=== PATIENT | female | born 1990 | race African-American/Black ===

== ENCOUNTER 2016-08-31 01:13 | Inpatient (IN) | payer SELFPAY ==
[~2016-08-31] VITALS: Ht 172.7 cm; Wt 123.4 kg
[~2016-08-31 01:13] MED LIST: LISI-334 PO
[2016-08-31 01:48] LABS: BASO # 0.1 x10^3/uL (0.0-0.2); BASO % 1 % (0-3); EOS % 0 % (0-3); HEMATOCRIT 41.3 % (36.0-47.0); HEMOGLOBIN 13.5 g/dL (12.0-15.5); LYMPH # 2.9 x10^3/uL (1.0-4.8); LYMPH % 31 % (24-48); MEAN CORPUSCULAR HEMOGLOBIN 26 pg (25-35); MEAN CORPUSCULAR HGB CONC 33 g/dL (31-37); MEAN CORPUSCULAR VOLUME 81 fL (79-100); MONO % 5 % (0-9); NEUT % 63 % (31-73); PLATELET COUNT 209 x10^3/uL (140-400); RED BLOOD COUNT 5.12 x10^6/uL (3.50-5.40); RED CELL DISTRIBUTION WIDTH 12.8 % (11.5-14.5); WHITE BLOOD COUNT 9.4 x10^3/uL (4.0-11.0)
[2016-08-31 01:57] LABS: CALCIUM 9.3 mg/dL (8.5-10.1); CREATININE 0.8 mg/dL (0.6-1.0); GFR 103.3; POTASSIUM 3.4 mmol/L (3.5-5.1)
[2016-08-31] MEDS: FENTANYL PF 100 MCG/2 ML VIAL. IV PRN ×3 (02:12→08:00)
--- NOTE | 2016-08-31 02:14 | EKG ---
[facility] [address] [place] [address] Test Date: 2016-08-31 Test Time: 01:19:53 Pat Name: BALTA STEARNS Department: Room: Gender: F [employer]: : 1990 Requested By: REMY RUSSELL Order Number: [id number] Reading MD: Measurements Intervals [place] Rate: 94 P: 47 [place]: 194 QRS: 0 QRSD: 84 T: 59 QT: 350 QTc: 443 Interpretive Statements SINUS RHYTHM LEFTWARD AXIS QRS(T) CONTOUR ABNORMALITY CONSISTENT WITH ANTEROSEPTAL INFARCT PROBABLY OLD ABNORMAL ECG RI6.01 No previous ECG available for comparison
[2016-08-31] MEDS: NITROGLYCERIN SUBLINGUAL 0.4 MG BOTTLE OF 25. SL PRN ×2 (02:15→02:24)
[2016-08-31 03:09] LABS: BILIRUBIN,URINE NEGATIVE (NEG); GLUCOSE,URINE >=1000 mg/dL (NEG); NITRITE,URINE NEGATIVE (NEG); PH,URINE 5.5; PROTEIN,URINE 100 mg/dL (NEG-TRACE)
[2016-08-31 03:15] LABS: BACTERIA,URINE 0 /HPF (0-FEW); BARBITURATES NEG (NEG); BENZODIAZEPINES NEG (NEG); CANNABINOIDS POS (NEG); COCAINE NEG (NEG); METHADONE NEG (NEG); OPIATES NEG (NEG); PHENCYCLIDINE NEG (NEG); SQUAMOUS EPITHELIAL CELL,UR FEW /LPF
[2016-08-31 03:17] LABS: ETHANOL, URINE NEG (NEG)
--- NOTE | 2016-08-31 03:17 | ED.ADGEN ---
Past Medical History Past Medical History: CAD, Diabetes-Type I, GERD, Hypertension, Stroke Past Surgical History: No Surgical History Alcohol Use: None Drug Use: None Adult General Chief Complaint Chief Complaint: CHEST PAIN HPI HPI Patient is a 26 year old woman, history of hypertension, type 2 diabetes mellitus, CAD, his last catheter was performed 2 years ago, who presents to the emergency department with complaint of left chest pain, radiating into the left arm, associated with lightheadedness, numbness and tingling in the left arm, shortness of breath, that began while the patient was walking briskly to her friend's house. Patient states that this occurred about 10 minutes before she called the ambulance, as in present for about 20 minutes at this time, improved somewhat when she sat down to rest, but she states it is still present at this time. Denies any injuries, denies any fevers, chills, cough, nausea, vomiting, weakness. She states that she was told previously to call EMS if she developed pain such as this. Family history is positive for Review of Systems Review of Systems Constitutional: Denies fever or chills. [] Eyes: Denies change in visual acuity. [] HENT: Denies nasal congestion or sore throat. [] Respiratory: Denies cough or shortness of breath. [] Cardiovascular: Denies chest pain or edema. [] GI: Denies abdominal pain, nausea, vomiting, bloody stools or diarrhea. [] : Denies dysuria. [] Musculoskeletal: Denies back pain or joint pain. [] Integument: Denies rash. [] Neurologic: Denies headache, focal weakness or sensory changes. [] Endocrine: Denies polyuria or polydipsia. [] Lymphatic: Denies swollen glands. [] Psychiatric: Denies depression or anxiety. [] Current Medications Current Medications Current Medications Medications (Trade) Dose Ordered Sig/Seven Start Time Stop Time Status Last Admin Dose Admin Fentanyl Citrate (Fentanyl 2ml Vial) 25 mcg PRN Q15MIN PRN 08/31/16 01:45 09/01/16 01:44 08/31/16 03:30 25 MCG Multi-Ingredient Mouthwash/Gargle (Gi Cocktail Single Dose) 15 ml 1X ONCE 08/31/16 03:45 08/31/16 03:46 DC 08/31/16 03:30 15 ML Nitroglycerin (Nitrostat) 0.4 mg PRN Q5MIN PRN 08/31/16 01:45 09/01/16 01:44 08/31/16 02:24 0.4 MG Allergies Allergies Allergies Coded Allergies Type Severity Reaction Last Updated Verified No Known Drug Allergies 11/27/14 No Physical Exam Physical Exam Constitutional: Well developed, well nourished, no acute distress, non-toxic appearance. [] HENT: Normocephalic, atraumatic, bilateral external ears normal, oropharynx moist, no oral exudates, nose normal. [] Eyes: PERRLA, EOMI, conjunctiva normal, no discharge. [] Neck: Normal range of motion, no tenderness, supple, no stridor. [] Cardiovascular:Heart rate regular rhythm, no murmur [] Lungs & Thorax: Bilateral breath sounds clear to auscultation [] Abdomen: Bowel sounds normal, soft, no tenderness, no masses, no pulsatile masses. [] Skin: Warm, dry, no erythema, no rash. [] Back: No tenderness, no CVA tenderness. [] Extremities: No tenderness, no cyanosis, no clubbing, ROM intact, no edema. [] Neurologic: Alert and oriented X 3, normal motor function, normal sensory function, no focal deficits noted. [] Psychologic: Affect normal, judgement normal, mood normal. [] Current Patient Data Vital Signs Vital Signs Date Time Temp Pulse Resp B/P Pulse Ox O2 Delivery O2 Flow Rate FiO2 08/31/16 03:45 80 22 146/86 97 Room Air 08/31/16 01:15 97.5 97.5 Lab Values Laboratory Tests Test 08/31/16 01:40 08/31/16 02:45 08/31/16 02:55 White Blood Count 9.4x10^3/uL (4.0-11.0) Red Blood Count 5.12x10^6/uL (3.50-5.40) Hemoglobin 13.5g/dL (12.0-15.5) Hematocrit 41.3% (36.0-47.0) Mean Corpuscular Volume 81fL (79-100) Mean Corpuscular Hemoglobin 26pg (25-35) Mean Corpuscular Hemoglobin Concent 33g/dL (31-37) Red Cell Distribution Width 12.8% (11.5-14.5) Platelet Count 209x10^3/uL (140-400) Neutrophils (%) (Auto) 63% (31-73) Lymphocytes (%) (Auto) 31% (24-48) Monocytes (%) (Auto) 5% (0-9) Eosinophils (%) (Auto) 0% (0-3) Basophils (%) (Auto) 1% (0-3) Neutrophils # (Auto) 5.9x10^3uL (1.8-7.7) Lymphocytes # (Auto) 2.9x10^3/uL (1.0-4.8) Monocytes # (Auto) 0.5x10^3/uL (0.0-1.1) Eosinophils # (Auto) 0.0x10^3/uL (0.0-0.7) Basophils # (Auto) 0.1x10^3/uL (0.0-0.2) D-Dimer (Priscila) 0.29ug/mlFEU (0.00-0.50) Sodium Level 144mmol/L (136-145) Potassium Level 3.4mmol/L (3.5-5.1) L Chloride Level 104mmol/L (98-107) Carbon Dioxide Level 28mmol/L (21-32) Anion Gap 12 (6-14) Blood Urea Nitrogen 21mg/dL (7-20) H Creatinine 0.8mg/dL (0.6-1.0) Estimated GFR (Cockcroft-Gault) 103.3 Glucose Level 374mg/dL (70-99) H Calcium Level 9.3mg/dL (8.5-10.1) Troponin I Quantitative < 0.017ng/mL (0.000-0.055) ZP-Orn-M-Type Natriuretic Peptide 33pg/mL (0-124) Lipase 101U/L (73-393) Urine Collection Type Unknown Urine Color Yellow Urine Clarity Clear Urine pH 5.5 Urine Specific [place] >=1.030 Urine Protein 100mg/dL (NEG-TRACE) Urine Glucose (UA) >=1000mg/dL (NEG) Urine Ketones (Stick) 15mg/dL (NEG) Urine Blood Moderate (NEG) Urine Nitrite Negative (NEG) Urine Bilirubin Negative (NEG) Urine Urobilinogen Dipstick 1.0mg/dL (0.2 mg/dL) Urine Leukocyte Esterase Negative (NEG) Urine RBC 6-10/HPF (0-2) Urine WBC 5-10/HPF (0-4) Urine Squamous Epithelial Cells Few/LPF Urine Bacteria 0/HPF (0-FEW) Urine Mucus Slight/LPF Urine Opiates Screen Neg (NEG) Urine Methadone Screen Neg (NEG) Urine Barbiturates Neg (NEG) Urine Phencyclidine Screen Neg (NEG) Urine Amphetamine/Methamphetamine Neg (NEG) Urine Benzodiazepines Screen Neg (NEG) Urine Cocaine Screen Neg (NEG) Urine Cannabinoids Screen Pos (NEG) Urine Ethyl Alcohol Neg (NEG) POC Urine HCG, Qualitative Hcg negative (Negative) Laboratory Tests 08/31/16 01:40 Laboratory Tests 08/31/16 01:40 EKG EKG EC: Sinus rhythm, left axis deviation, heart rate 94 beats minute, abnormalities noted in the anterior septal leads, QTc 443, NM 194, worse 84, abnormal ECG, does not meet STEMI criteria. As interpreted by me. [] Radiology/Procedures Radiology/Procedures [] Course & Med Decision Making Course & Med Decision Making Pertinent Labs and Imaging studies reviewed. (See chart for details) All the patient is only 18 years old, she has a history of known cardiac disease after a catheterization performed 2 years ago, per her report at , history of hypertension and diabetes mellitus, who presents with chest pain radiating to left arm, associated with shortness of breath and lightheadedness. Chest pain again showed arrival in the ED. She received nitroglycerin, has 30 taken aspirin she takes daily, and is given a full dose in the ED, along with fentanyl. Pain is improved with these interventions. ECG does not reveal any evidence of acute cardial infarction, initial troponin is negative, however due to the patient's family and personal history, and as it has been several years since she had a cardiac evaluation, will admit for cardiology consultation, patient accepted to the service of Dr. Mendez of internal medicine, as a full admission, bridge orders as requested. Dragon Disclaimer Dragon Disclaimer This electronic medical record was generated, in whole or in part, using a voice recognition dictation system. Departure Impression: Primary Impression: Chest pain Disposition: ADMITTED INPATIENT Condition: IMPROVED Problem Qualifiers Primary Impression: Chest pain Chest pain type: unspecified Qualified Code: R07.9 - Chest pain, unspecified REMY RUSSELL DO Aug 31, 2016 03:17
[2016-08-31] MEDS ORDERED: LIDO:MAALOX:DONNATAL 1:1:1 15 ML SINGLE DOSE SWSW ONE (03:45)
--- NOTE | 2016-08-31 08:13 | ACF ---
Admit Criteria Forms Admit Criteria Forms Admit Criteria Forms CHEST PAIN Clinical Indications for Admission to Inpatient Care (Place 'X' for any and all applicable criteria): Admission is indicated for chest pain and ANY ONE of the following(1)(2)(3)(4)(5 ): [ ]I. Angina with acute coronary syndrome (Also use Myocardial Infarction or Angina guideline) [X]II. Hemodynamic instability [ ]III. Angina needing acute intervention as indicated by ALL of the following( 11)(12): [ ]a) Unstable angina is present as indicated by angina that is ANY ONE of the following: [ ]i) New onset [ ]ii) Nocturnal [ ]iii) Prolonged at rest [ ]iv) Progressive [ ]b) Angina warrants acute intervention as indicated by ANY ONE of the following: [ ]i) Recurrent angina (e.g, not responding as previously to treatment) [ ]ii) Angina at rest or with low-level activities despite initial medical therapy [ ]iii) New or presumably new ST-segment depression on ECG [ ]iv) Signs or symptoms of heart failure (eg, dyspnea, pulmonary edema) [ ]v) New or worsening mitral regurgitation [ ]vi) Hemodynamic instability [ ]vii) Dangerous arrhythmia (eg, sustained ventricular tachycardia) [ ]viii) History of percutaneous coronary intervention within 6 months [ ]ix) History of coronary artery bypass graft surgery [ ]x) JACK risk score of 2 or greater[A] [ ]xi) History of Diabetes(14) [ ]xii) High-risk cardiac ischemia findings on noninvasive testing (e.g, echocardiogram, treadmill testing, nuclear scan) [ ]xiii) Chronic renal insufficiency (ie, estimated GFR less than 60 mL/min/1.732m) [ ]xiv) Left ventricular ejection fraction less than 40% [ ]IV. Evidence of MT (eg, cardiac biomarkers positive, ST-segment elevation on ECG) also use Myocardial Infarction Criteria Form. [ ]V. Pulmonary edema [ ]. Respiratory distress [ ]VII. Chest pain indicative of serious diagnosis other than coronary artery disease (eg, aortic dissection) [ ]VIII. Contraindications and/or Inappropriate clinical situations for Observational Care in patients with Chest Pain, when ANY ONE of the following is required: [ ]a) Patient with risk factor for pulmonary embolism, acute coronary syndrome and myocardial infarction (18) [ ]b) Patient with Pulmonary embolism require an average LOS of 4.3 days, therefore emergency department observation management is inappropriate 18,23 [ ]c) Painful condition/s in the elderly, have the highest rate of recidivism after emergency department observation management (10.8%) 20,21,22 [ ]d) Elevated cardiac biomarker requires intensive and exhaustive care (19) [ ]IX. General contraindications and/or Inappropriate clinical situations for Observational Care in patients with Chest Pain, when ANY ONE of the following is required: [ ]a) Prediction of prolongation of LOS based on ANY ONE of the following may be considered as a contraindication for observational care 2, 3, 4, 5, 6, 7, 8, 9, 10, 11 [ ]i) Age > 65 yrs. [ ]ii) Patient arriving by ambulance [ ]iii) Patient with high acuity [ ]iv) Patient requiring vital sign monitoring [ ]v) Patient on IV medication [ ]b) Systolic blood pressures 180mmHg 3,12 [ ]c) Patient with altered mental status including delirium and other alteration of consciousness, (3) [ ]d) Patient whose discharge disposition will be to a care home home or rehabilitation home should not be managed in Emergency Department Observation Unit. CMS rule requires 3 days hospital stay before such placement. 3,13 [ ]e) Patient with failure to thrive due to broad array of etiologies 3,16,17 [ ]f) Inability to ambulate 3,14 Extended stay beyond goal length of stay may be needed for (1)(28): [ ]a) Specific condition diagnosed after evaluation (eg, pulmonary embolism, aortic dissection) [ ]b) Unstable angina [ ]c) Continued suspicion of acute coronary syndrome with inability to complete needed cardiac evaluation (eg, patient clinically unable to undergo stress testing) [ ]d) Myocardial infarction (Contents from ANGINA and CHEST PAIN clinical indications for admission to inpatient care have been integrated in this form) The original [employer] content created by [employer] has been revised. The portions of the content which have been revised are identified through the use of italic text or in bold, and [facility] has neither reviewed nor approved the modified material. All other unmodified content is copyright [employer]. Please see references footnoted in the original [facility] center[facility] [employer] edition 2016 SAMEERA SUN Aug 31, 2016 08:13
[2016-08-31] MEDS ORDERED: METF10002 PO (10:52)
[2016-08-31] MEDS ORDERED: PANT40TA3 PO (10:52)
[2016-08-31] MEDS ORDERED: INSU100V8 SQ (10:52)
[2016-08-31] MEDS ORDERED: TRAZ50TA15 PO (10:52)
[2016-08-31] MEDS ORDERED: ESCI10TA10 PO (10:52)
[2016-08-31] MEDS ORDERED: AMLO10TA2 PO (10:52)
[2016-08-31] MEDS ORDERED: INSU100C4 SQ (10:52)
[2016-08-31 11:00] VITALS: BP 163/96
[2016-08-31] MEDS ORDERED: FENTANYL PF 100 MCG/2 ML VIAL. IV PRN (11:15)
[2016-08-31] MEDS ORDERED: DEXTROSE 50% 25 GM / 50ML DISP.SYRIN. IV PRN (11:15)
[2016-08-31] MEDS ORDERED: ZOLPIDEM 5 MG TABLET. PO PRN (11:15)
[2016-08-31] MEDS ORDERED: LABETALOL 20 MG/4 ML DISP.SYRIN. IVP PRN (11:15)
[2016-08-31 11:23] VITALS: BP 163/96
[2016-08-31 11:27] LABS: CHOLESTEROL/HDL RATIO 5.9
--- NOTE | 2016-08-31 12:09 | PDOC1 ---
History and Physical Date of Admission Date of Admission DATE: 08/31/16 TIME: 12:03 Identification/Chief Complaint Chief Complaint chest pain Source Source: Caregiver, Chart review, Patient History of Present Illness History of Present Illness 26 y/o heavy set AA female with DM on high doses insulin, HTN, and strong family hx CAD (mother at age 52 from CAD), admitted for CP,. HAs been going on quite a while, weeks to few mos, left sided, associated with dizziness and maybe lightheadedness, no diaphoresis, radiated to left afm, LAsts 10 mins, then goes back again, CE and EKG so far reassuring, BP may be on high side. NO PCP, [facility] compliance,. Pt admitted for r/o ACS, given strong risk factors. BS > 300 on admissio, pt does not know her hgba1c Past Medical History Cardiovascular: HTN CENTRAL NERVOUS SYSTEM: CVA Endocrine: Diabetes Past Surgical History Past Surgical History: No pertinent history Family History Family History: Coronary Artery Disease, Diabetes, Hypertension Social History Smoke: No ALCOHOL: occassional Drugs: None Current Problem List Problem List Problems Medical Problems: (1) Chest pain Status: Acute Problems: Current Medications Current Medications Current Medications Nitroglycerin (Nitrostat) 0.4 mg PRN Q5MIN PRN SL CP RATING > 1/10 Last administered on 08/31/16 02:24; Start 08/31/16 at 01:45; Stop 09/01/16 at 01:44 Fentanyl Citrate (Fentanyl 2ml Vial) 25 mcg PRN Q15MIN PRN IV PAIN GREATER THAN 3/10 Last administered on 08/31/16 08:00; Start 08/31/16 at 01:45; Stop at 11:05; Status DC Multi-Ingredient Mouthwash/Gargle (Gi Cocktail Single Dose) 15 ml 1X ONCE SWSW Last administered on 08/31/16 03:30; Start 08/31/16 at 03:45; Stop 08/31/16 at 03:46; Status DC Fentanyl Citrate (Fentanyl 2ml Vial) 50 mcg PRN Q2HR PRN IV PAIN; Start at 11:15 Insulin Aspart (Novolog) 0-9 UNITS TIDWMEALS SQ ; Start 08/31/16 at 12:00 Dextrose 12.5 gm PRN Q15MIN PRN IV SEE COMMENTS; Start 08/31/16 at 11:15 Labetalol HCl (Normodyne) 10 mg PRN Q2HR PRN IVP HYPERTENSION, SEE COMMENTS; Start 08/31/16 at 11:15 Amlodipine Besylate (Norvasc) 20 mg DAILY PO ; Start 08/31/16 at 11:30 Escitalopram Oxalate (Lexapro) 30 mg DAILY PO ; Start 08/31/16 at 11:30 Lisinopril (Prinivil) 20 mg BID PO ; Start 08/31/16 at 11:30 Pantoprazole Sodium (Protonix) 40 mg DAILY PO ; Start 08/31/16 at 11:30 Trazodone HCl (Desyrel) 50 mg HS PO ; Start 08/31/16 at 21:00 Insulin Aspart (Novolog) 26 units TIDBFRMEAL SQ ; Start 08/31/16 at 16:30 Insulin Detemir (Levemir) 56 units QHS SQ ; Start 08/31/16 at 21:00 Zolpidem Tartrate (Ambien) 5 mg PRN QHS PRN PO INSOMNIA; Start 08/31/16 at 11: 15 Active Scripts Active Reported Lexapro (Escitalopram Oxalate) 10 Mg Tablet 30 Mg PO DAILY Trazodone Hcl 50 Mg Tablet 50 Mg PO HS Amlodipine Besylate 10 Mg Tablet 20 Mg PO DAILY Protonix (Pantoprazole Sodium) 40 Mg Tablet.dr 40 Mg PO DAILY Lantus (Insulin Glargine,Hum.rec.anlog) 100 Unit/1 Ml Vial 56 Unit SQ HS Metformin Hcl 1,000 Mg Tablet 1 Tab PO BID Novolog (Insulin Aspart) 100 Unit/1 Ml Cartridge 26 Unit SQ TIDAC Lisinopril 20 Mg Tablet 1 Tab PO BID Allergies Allergies: Coded Allergies: No Known Drug Allergies (Unverified , 11/27/14) ROS General: No: Appetite, Chills, Fatigue, Malaise, Night Sweats, Other PSYCHOLOGICAL ROS: No: Anxiety, Behavioral Disorder, Concentration difficultie , Decreased libido, Depression, Disorientation, Hallucinations, Hostility, Irritablity, Memory difficulties, Mood Swings, Obsessive thoughts, Other, Physical abuse, Sexual abuse, Sleep disturbances, Suicidal ideation ALLERGY AND IMMUNOLOGY: No: Hives, Insect Bite Sensitivity, Itchy/Watery Eyes, Nasal Congestion, Other, Post Nasal Drip, Seasonal Allergies Hematological and Lymphatic: No: Bleeding Problems, Blood Clots, Blood Transfusions, Brusing, Night Sweats, Other, Pallor, Swollen Lymph Nodes ENDOCRINE: No: Breast Changes, Galactorrhea, Hair Pattern Changes, Hot Flashes , Malaise/lethargy, Mood Swings, Other, Palpitations, Polydipsia/polyuria, Skin Changes, Temperature Intolerance, Unexpected Weight Changes Breast: No New/Changing Breast Lumps, No Nipple changes, No Nipple discharge, No Other Respiratory: YES: Shortness of breath, No: Cough, Hemoptysis, Orthopnea, Other, Pleuritic Pain, SOB with excertion, Sputum Changes, Stridor, Tachypnea, Wheezing Cardiovascular: yes Chest Pain Musculoskeletal: No Gait Disturbance, No Joint Pain, No Joint Stiffness, No Joint Swelling, No Muscle Pain, No Muscular Weakness, No Other, No Pain In:, No Swelling In: Neurological: No Behavorial Changes, No Bowel/Bladder ControlChng, No Confusion , No Dizziness, No Gait Disturbance, No Headaches, No Impaired Coord/balance, No Memory Loss, No Numbness/Tingling, No Other, No Seizures, No Speech Problems , No Tremors, No Visual Changes, No Weakness Skin: No Acne, No Dry Skin, No Eczema, No Hair Changes, No Lumps, No Mole Changes, No Mottling, No Nail Changes, No Other, No Pruritus, No Rash, No Skin Lesion Changes Physical Exam General: Alert, Oriented X3, Cooperative, No acute distress HEENT: PERRLA, EOMI Lungs: Clear to auscultation, Normal air movement Heart: S1S2, RRR, no thrills, no rubs, no gallops, no murmurs Cardiovascular: S1, S2 Breasts: Normal Abdomen: Normal bowel sounds, Soft, No tenderness, No hepatosplenomegaly, No masses Rectal Exam: not examined PELVIC: Nml ext genitalia Extremities: No clubbing, No cyanosis, No edema, Normal pulses, No tenderness/ swelling Skin: No rashes, No breakdown, No significant lesion Neuro: Normal gait, Normal speech, Strength at 5/5 X4 ext, Normal tone, Sensation intact, Cranial nerves 3-12 NL, Reflexes 2+ Psych/Mental Status: Mental status NL, Mood NL Vitals Vitals Vital Signs Date Time Temp Pulse Resp B/P Pulse Ox O2 Delivery O2 Flow Rate FiO2 08/31/16 11:23 97.5 80 163/96 98 Room Air 97.5 08/31/16 09:00 16 Labs Labs Laboratory Tests Test 08/31/16 01:40 08/31/16 02:45 08/31/16 02:55 08/31/16 07:45 White Blood Count 9.4x10^3/uL (4.0-11.0) Red Blood Count 5.12x10^6/uL (3.50-5.40) Hemoglobin 13.5g/dL (12.0-15.5) Hematocrit 41.3% (36.0-47.0) Mean Corpuscular Volume 81fL (79-100) Mean Corpuscular Hemoglobin 26pg (25-35) Mean Corpuscular Hemoglobin Concent 33g/dL (31-37) Red Cell Distribution Width 12.8% (11.5-14.5) Platelet Count 209x10^3/uL (140-400) Neutrophils (%) (Auto) 63% (31-73) Lymphocytes (%) (Auto) 31% (24-48) Monocytes (%) (Auto) 5% (0-9) Eosinophils (%) (Auto) 0% (0-3) Basophils (%) (Auto) 1% (0-3) Neutrophils # (Auto) 5.9x10^3uL (1.8-7.7) Lymphocytes # (Auto) 2.9x10^3/uL (1.0-4.8) Monocytes # (Auto) 0.5x10^3/uL (0.0-1.1) Eosinophils # (Auto) 0.0x10^3/uL (0.0-0.7) Basophils # (Auto) 0.1x10^3/uL (0.0-0.2) D-Dimer (Priscila) 0.29ug/mlFEU (0.00-0.50) Sodium Level 144mmol/L (136-145) Potassium Level 3.4mmol/L (3.5-5.1) Chloride Level 104mmol/L (98-107) Carbon Dioxide Level 28mmol/L (21-32) Anion Gap 12 (6-14) Blood Urea Nitrogen 21mg/dL (7-20) Creatinine 0.8mg/dL (0.6-1.0) Estimated GFR (Cockcroft-Gault) 103.3 Glucose Level 374mg/dL (70-99) Calcium Level 9.3mg/dL (8.5-10.1) Troponin I Quantitative < 0.017ng/mL (0.000-0.055) < 0.017ng/mL (0.000-0.055) IM-Zsp-C-Type Natriuretic Peptide 33pg/mL (0-124) Lipase 101U/L (73-393) Urine Collection Type Unknown Urine Color Yellow Urine Clarity Clear Urine pH 5.5 Urine Specific [place] >=1.030 Urine Protein 100mg/dL (NEG-TRACE) Urine Glucose (UA) >=1000mg/dL (NEG) Urine Ketones (Stick) 15mg/dL (NEG) Urine Blood Moderate (NEG) Urine Nitrite Negative (NEG) Urine Bilirubin Negative (NEG) Urine Urobilinogen Dipstick 1.0mg/dL (0.2 mg/dL) Urine Leukocyte Esterase Negative (NEG) Urine RBC 6-10/HPF (0-2) Urine WBC 5-10/HPF (0-4) Urine Squamous Epithelial Cells Few/LPF Urine Bacteria 0/HPF (0-FEW) Urine Mucus Slight/LPF Urine Opiates Screen Neg (NEG) Urine Methadone Screen Neg (NEG) Urine Barbiturates Neg (NEG) Urine Phencyclidine Screen Neg (NEG) Urine Amphetamine/Methamphetamine Neg (NEG) Urine Benzodiazepines Screen Neg (NEG) Urine Cocaine Screen Neg (NEG) Urine Cannabinoids Screen Pos (NEG) Urine Ethyl Alcohol Neg (NEG) Bedside Urine HCG, Qualitative Hcg negative (Negative) Triglycerides Level 113mg/dL (0-150) Cholesterol Level 229mg/dL (0-200) LDL Cholesterol, Calculated 167mg/dL (0-100) VLDL Cholesterol, Calculated 23mg/dL (0-40) HDL Cholesterol 39mg/dL (40-60) Cholesterol/HDL Ratio 5.9 Laboratory Tests Test 08/31/16 01:40 08/31/16 02:45 08/31/16 02:55 08/31/16 07:45 White Blood Count 9.4x10^3/uL (4.0-11.0) Red Blood Count 5.12x10^6/uL (3.50-5.40) Hemoglobin 13.5g/dL (12.0-15.5) Hematocrit 41.3% (36.0-47.0) Mean Corpuscular Volume 81fL (79-100) Mean Corpuscular Hemoglobin 26pg (25-35) Mean Corpuscular Hemoglobin Concent 33g/dL (31-37) Red Cell Distribution Width 12.8% (11.5-14.5) Platelet Count 209x10^3/uL (140-400) Neutrophils (%) (Auto) 63% (31-73) Lymphocytes (%) (Auto) 31% (24-48) Monocytes (%) (Auto) 5% (0-9) Eosinophils (%) (Auto) 0% (0-3) Basophils (%) (Auto) 1% (0-3) Neutrophils # (Auto) 5.9x10^3uL (1.8-7.7) Lymphocytes # (Auto) 2.9x10^3/uL (1.0-4.8) Monocytes # (Auto) 0.5x10^3/uL (0.0-1.1) Eosinophils # (Auto) 0.0x10^3/uL (0.0-0.7) Basophils # (Auto) 0.1x10^3/uL (0.0-0.2) D-Dimer (Priscila) 0.29ug/mlFEU (0.00-0.50) Sodium Level 144mmol/L (136-145) Potassium Level 3.4mmol/L (3.5-5.1) Chloride Level 104mmol/L (98-107) Carbon Dioxide Level 28mmol/L (21-32) Anion Gap 12 (6-14) Blood Urea Nitrogen 21mg/dL (7-20) Creatinine 0.8mg/dL (0.6-1.0) Estimated GFR (Cockcroft-Gault) 103.3 Glucose Level 374mg/dL (70-99) Calcium Level 9.3mg/dL (8.5-10.1) Troponin I Quantitative < 0.017ng/mL (0.000-0.055) < 0.017ng/mL (0.000-0.055) UZ-Asa-H-Type Natriuretic Peptide 33pg/mL (0-124) Lipase 101U/L (73-393) Urine Collection Type Unknown Urine Color Yellow Urine Clarity Clear Urine pH 5.5 Urine Specific [place] >=1.030 Urine Protein 100mg/dL (NEG-TRACE) Urine Glucose (UA) >=1000mg/dL (NEG) Urine Ketones (Stick) 15mg/dL (NEG) Urine Blood Moderate (NEG) Urine Nitrite Negative (NEG) Urine Bilirubin Negative (NEG) Urine Urobilinogen Dipstick 1.0mg/dL (0.2 mg/dL) Urine Leukocyte Esterase Negative (NEG) Urine RBC 6-10/HPF (0-2) Urine WBC 5-10/HPF (0-4) Urine Squamous Epithelial Cells Few/LPF Urine Bacteria 0/HPF (0-FEW) Urine Mucus Slight/LPF Urine Opiates Screen Neg (NEG) Urine Methadone Screen Neg (NEG) Urine Barbiturates Neg (NEG) Urine Phencyclidine Screen Neg (NEG) Urine Amphetamine/Methamphetamine Neg (NEG) Urine Benzodiazepines Screen Neg (NEG) Urine Cocaine Screen Neg (NEG) Urine Cannabinoids Screen Pos (NEG) Urine Ethyl Alcohol Neg (NEG) Bedside Urine HCG, Qualitative Hcg negative (Negative) Triglycerides Level 113mg/dL (0-150) Cholesterol Level 229mg/dL (0-200) LDL Cholesterol, Calculated 167mg/dL (0-100) VLDL Cholesterol, Calculated 23mg/dL (0-40) HDL Cholesterol 39mg/dL (40-60) Cholesterol/HDL Ratio 5.9 VTE Prophylaxis Ordered VTE Prophylaxis Devices: Yes VTE Pharmacological Prophylaxi: Yes Assessment/Plan Assessment/Plan 1. Chest pain r/o ACS 2. DM 2 uncontrolled, unknown hgba1c, BS > 300 at ER 3. HTN 4. OCcasional etoh drinker 5. Strong hx premature CAD in family PLAn: Cycle CE NPO CARds consult Check lipids Check hgba1c resume meds prn IV BP meds SSI high dose Dw pt ADAM DE ANDA MD Aug 31, 2016 12:09
[2016-08-31] MEDS: PANTOPRAZOLE 40 MG TABLET. PO SCH (12:56)
[2016-08-31] MEDS: ESCITALOPRAM 10 MG TABLET. PO SCH (12:56)
[2016-08-31] MEDS: AMLODIPINE BESYLATE 10 MG TABLET PO SCH (12:57)
[2016-08-31] MEDS: LISINOPRIL 20 MG TABLET PO SCH ×2 (12:57→21:18)
[2016-08-31] MEDS: INSULIN ASPART 300 UNITS/3 ML INSULN.PEN SQ SCH ×3 (13:09→17:00)
[2016-08-31 15:14] VITALS: BP 160/83
--- NOTE | 2016-08-31 15:16 | PDOC2 ---
CONSULT Date of Consult Date of Consult DATE: 08/31/16 TIME: 15:08 Reason for Consult Reason for Consult: Chest Pain Referring Physician Referring Physician: Dr Basilio Identification/Chief Complaint Chief Complaint Chest pain History of Present Illness Reason for Visit: Pt is a 26 y o diabetic Lady with HTN that has a (+) Fam. Hx of Heart Disease. She comes in with L sided chest pains and some L arm tingling. No pain now unless pressing on the L side of the chest but is quite tender there and just listening with the stethoscope causes her to have pain. Pt denies any prior heart problems and enzymes have been negative, no significant EKG abnormalities. Past Medical History Cardiovascular: HTN CENTRAL NERVOUS SYSTEM: CVA Endocrine: Diabetes Past Surgical History Past Surgical History: No pertinent history Family History Family History: Coronary Artery Disease, Diabetes, Hypertension Social History No ALCOHOL: occassional Drugs: None Current Problem List Problem List Problems Medical Problems: (1) Chest pain Status: Acute Current Medications Current Medications Current Medications Nitroglycerin (Nitrostat) 0.4 mg PRN Q5MIN PRN SL CP RATING > 1/10 Last administered on 08/31/16 02:24; Start 08/31/16 at 01:45; Stop 09/01/16 at 01:44 Fentanyl Citrate (Fentanyl 2ml Vial) 25 mcg PRN Q15MIN PRN IV PAIN GREATER THAN 3/10 Last administered on 08/31/16 08:00; Start 08/31/16 at 01:45; Stop at 11:05; Status DC Multi-Ingredient Mouthwash/Gargle (Gi Cocktail Single Dose) 15 ml 1X ONCE SWSW Last administered on 08/31/16 03:30; Start 08/31/16 at 03:45; Stop 08/31/16 at 03:46; Status DC Fentanyl Citrate (Fentanyl 2ml Vial) 50 mcg PRN Q2HR PRN IV PAIN; Start at 11:15 Insulin Aspart (Novolog) 0-9 UNITS TIDWMEALS SQ Last administered on 08/31/16 13:10; Start 08/31/16 at 12:00 Dextrose 12.5 gm PRN Q15MIN PRN IV SEE COMMENTS; Start 08/31/16 at 11:15 Labetalol HCl (Normodyne) 10 mg PRN Q2HR PRN IVP HYPERTENSION, SEE COMMENTS; Start 08/31/16 at 11:15 Amlodipine Besylate (Norvasc) 20 mg DAILY PO Last administered on 08/31/16 12: 57; Start 08/31/16 at 11:30 Escitalopram Oxalate (Lexapro) 30 mg DAILY PO Last administered on 08/31/16 12 :56; Start 08/31/16 at 11:30 Lisinopril (Prinivil) 20 mg BID PO Last administered on 08/31/16 12:57; Start 08/31/16 at 11:30 Pantoprazole Sodium (Protonix) 40 mg DAILY PO Last administered on 08/31/16 12 :56; Start 08/31/16 at 11:30 Trazodone HCl (Desyrel) 50 mg HS PO ; Start 08/31/16 at 21:00 Insulin Aspart (Novolog) 26 units TIDBFRMEAL SQ Last administered on 08/31/16 13:09; Start 08/31/16 at 16:30 Insulin Detemir (Levemir) 56 units QHS SQ ; Start 08/31/16 at 21:00 Zolpidem Tartrate (Ambien) 5 mg PRN QHS PRN PO INSOMNIA; Start 08/31/16 at 11: 15 Active Scripts Active Reported Lexapro (Escitalopram Oxalate) 10 Mg Tablet 30 Mg PO DAILY Trazodone Hcl 50 Mg Tablet 50 Mg PO HS Amlodipine Besylate 10 Mg Tablet 20 Mg PO DAILY Protonix (Pantoprazole Sodium) 40 Mg Tablet.dr 40 Mg PO DAILY Lantus (Insulin Glargine,Hum.rec.anlog) 100 Unit/1 Ml Vial 56 Unit SQ HS Metformin Hcl 1,000 Mg Tablet 1 Tab PO BID Novolog (Insulin Aspart) 100 Unit/1 Ml Cartridge 26 Unit SQ TIDAC Lisinopril 20 Mg Tablet 1 Tab PO BID Allergies Allergies: Coded Allergies: No Known Drug Allergies (Unverified , 11/27/14) Physical Exam General: Alert, Oriented X3, Cooperative HEENT: PERRLA Lungs: Clear to auscultation Heart: Regular rate, Normal S1, Normal S2, No murmurs Abdomen: Normal bowel sounds, Soft Extremities: No edema Vitals VITALS Vital Signs Date Time Temp Pulse Resp B/P Pulse Ox O2 Delivery O2 Flow Rate FiO2 08/31/16 12:57 80 163/96 08/31/16 11:23 97.5 98 Room Air 97.5 08/31/16 11:00 16 Labs Labs Laboratory Tests Test 08/31/16 01:40 08/31/16 02:45 08/31/16 02:55 08/31/16 07:45 White Blood Count 9.4x10^3/uL (4.0-11.0) Red Blood Count 5.12x10^6/uL (3.50-5.40) Hemoglobin 13.5g/dL (12.0-15.5) Hematocrit 41.3% (36.0-47.0) Mean Corpuscular Volume 81fL (79-100) Mean Corpuscular Hemoglobin 26pg (25-35) Mean Corpuscular Hemoglobin Concent 33g/dL (31-37) Red Cell Distribution Width 12.8% (11.5-14.5) Platelet Count 209x10^3/uL (140-400) Neutrophils (%) (Auto) 63% (31-73) Lymphocytes (%) (Auto) 31% (24-48) Monocytes (%) (Auto) 5% (0-9) Eosinophils (%) (Auto) 0% (0-3) Basophils (%) (Auto) 1% (0-3) Neutrophils # (Auto) 5.9x10^3uL (1.8-7.7) Lymphocytes # (Auto) 2.9x10^3/uL (1.0-4.8) Monocytes # (Auto) 0.5x10^3/uL (0.0-1.1) Eosinophils # (Auto) 0.0x10^3/uL (0.0-0.7) Basophils # (Auto) 0.1x10^3/uL (0.0-0.2) D-Dimer (Priscila) 0.29ug/mlFEU (0.00-0.50) Sodium Level 144mmol/L (136-145) Potassium Level 3.4mmol/L (3.5-5.1) Chloride Level 104mmol/L (98-107) Carbon Dioxide Level 28mmol/L (21-32) Anion Gap 12 (6-14) Blood Urea Nitrogen 21mg/dL (7-20) Creatinine 0.8mg/dL (0.6-1.0) Estimated GFR (Cockcroft-Gault) 103.3 Glucose Level 374mg/dL (70-99) Calcium Level 9.3mg/dL (8.5-10.1) Troponin I Quantitative < 0.017ng/mL (0.000-0.055) < 0.017ng/mL (0.000-0.055) QZ-Uug-T-Type Natriuretic Peptide 33pg/mL (0-124) Lipase 101U/L (73-393) Urine Collection Type Unknown Urine Color Yellow Urine Clarity Clear Urine pH 5.5 Urine Specific Fords >=1.030 Urine Protein 100mg/dL (NEG-TRACE) Urine Glucose (UA) >=1000mg/dL (NEG) Urine Ketones (Stick) 15mg/dL (NEG) Urine Blood Moderate (NEG) Urine Nitrite Negative (NEG) Urine Bilirubin Negative (NEG) Urine Urobilinogen Dipstick 1.0mg/dL (0.2 mg/dL) Urine Leukocyte Esterase Negative (NEG) Urine RBC 6-10/HPF (0-2) Urine WBC 5-10/HPF (0-4) Urine Squamous Epithelial Cells Few/LPF Urine Bacteria 0/HPF (0-FEW) Urine Mucus Slight/LPF Urine Opiates Screen Neg (NEG) Urine Methadone Screen Neg (NEG) Urine Barbiturates Neg (NEG) Urine Phencyclidine Screen Neg (NEG) Urine Amphetamine/Methamphetamine Neg (NEG) Urine Benzodiazepines Screen Neg (NEG) Urine Cocaine Screen Neg (NEG) Urine Cannabinoids Screen Pos (NEG) Urine Ethyl Alcohol Neg (NEG) Bedside Urine HCG, Qualitative Hcg negative (Negative) Triglycerides Level 113mg/dL (0-150) Cholesterol Level 229mg/dL (0-200) LDL Cholesterol, Calculated 167mg/dL (0-100) VLDL Cholesterol, Calculated 23mg/dL (0-40) HDL Cholesterol 39mg/dL (40-60) Cholesterol/HDL Ratio 5.9 Test 08/31/16 13:35 Troponin I Quantitative < 0.017ng/mL (0.000-0.055) Laboratory Tests Test 08/31/16 01:40 08/31/16 02:45 08/31/16 02:55 08/31/16 07:45 White Blood Count 9.4x10^3/uL (4.0-11.0) Red Blood Count 5.12x10^6/uL (3.50-5.40) Hemoglobin 13.5g/dL (12.0-15.5) Hematocrit 41.3% (36.0-47.0) Mean Corpuscular Volume 81fL (79-100) Mean Corpuscular Hemoglobin 26pg (25-35) Mean Corpuscular Hemoglobin Concent 33g/dL (31-37) Red Cell Distribution Width 12.8% (11.5-14.5) Platelet Count 209x10^3/uL (140-400) Neutrophils (%) (Auto) 63% (31-73) Lymphocytes (%) (Auto) 31% (24-48) Monocytes (%) (Auto) 5% (0-9) Eosinophils (%) (Auto) 0% (0-3) Basophils (%) (Auto) 1% (0-3) Neutrophils # (Auto) 5.9x10^3uL (1.8-7.7) Lymphocytes # (Auto) 2.9x10^3/uL (1.0-4.8) Monocytes # (Auto) 0.5x10^3/uL (0.0-1.1) Eosinophils # (Auto) 0.0x10^3/uL (0.0-0.7) Basophils # (Auto) 0.1x10^3/uL (0.0-0.2) D-Dimer (Priscila) 0.29ug/mlFEU (0.00-0.50) Sodium Level 144mmol/L (136-145) Potassium Level 3.4mmol/L (3.5-5.1) Chloride Level 104mmol/L (98-107) Carbon Dioxide Level 28mmol/L (21-32) Anion Gap 12 (6-14) Blood Urea Nitrogen 21mg/dL (7-20) Creatinine 0.8mg/dL (0.6-1.0) Estimated GFR (Cockcroft-Gault) 103.3 Glucose Level 374mg/dL (70-99) Calcium Level 9.3mg/dL (8.5-10.1) Troponin I Quantitative < 0.017ng/mL (0.000-0.055) < 0.017ng/mL (0.000-0.055) RG-Ubi-P-Type Natriuretic Peptide 33pg/mL (0-124) Lipase 101U/L (73-393) Urine Collection Type Unknown Urine Color Yellow Urine Clarity Clear Urine pH 5.5 Urine Specific Fords >=1.030 Urine Protein 100mg/dL (NEG-TRACE) Urine Glucose (UA) >=1000mg/dL (NEG) Urine Ketones (Stick) 15mg/dL (NEG) Urine Blood Moderate (NEG) Urine Nitrite Negative (NEG) Urine Bilirubin Negative (NEG) Urine Urobilinogen Dipstick 1.0mg/dL (0.2 mg/dL) Urine Leukocyte Esterase Negative (NEG) Urine RBC 6-10/HPF (0-2) Urine WBC 5-10/HPF (0-4) Urine Squamous Epithelial Cells Few/LPF Urine Bacteria 0/HPF (0-FEW) Urine Mucus Slight/LPF Urine Opiates Screen Neg (NEG) Urine Methadone Screen Neg (NEG) Urine Barbiturates Neg (NEG) Urine Phencyclidine Screen Neg (NEG) Urine Amphetamine/Methamphetamine Neg (NEG) Urine Benzodiazepines Screen Neg (NEG) Urine Cocaine Screen Neg (NEG) Urine Cannabinoids Screen Pos (NEG) Urine Ethyl Alcohol Neg (NEG) Bedside Urine HCG, Qualitative Hcg negative (Negative) Triglycerides Level 113mg/dL (0-150) Cholesterol Level 229mg/dL (0-200) LDL Cholesterol, Calculated 167mg/dL (0-100) VLDL Cholesterol, Calculated 23mg/dL (0-40) HDL Cholesterol 39mg/dL (40-60) Cholesterol/HDL Ratio 5.9 Test 08/31/16 13:35 Troponin I Quantitative < 0.017ng/mL (0.000-0.055) Assessment/Plan Assessment/Plan Pt with chest pains that are probably non-cardiac but she has significant risk factors for CAD. Will check further enzymes and if negative pt may discharged and have a stress test as an out-pt next week. Thank you SIVAN STRINGER MD Aug 31, 2016 15:16
[2016-08-31] MEDS: ACETAMINOPHEN 500 MG TABLET PO PRN (18:41)
[2016-08-31 19:56] VITALS: BP 135/80
[2016-08-31] MEDS ORDERED: traZODone 50 MG TABLET. PO SCH (21:00)
[2016-08-31] MEDS ORDERED: INSULIN DETEMIR 300 UNITS/3 ML INSULN.PEN. SQ SCH (21:00)
[2016-08-31 23:43] VITALS: BP 148/83
[2016-09-01 03:40] VITALS: BP 138/78
[2016-09-01 07:55] VITALS: BP 145/83
[2016-09-01] MEDS: ACETAMINOPHEN 500 MG TABLET PO PRN (08:08)
[2016-09-01] MEDS: PANTOPRAZOLE 40 MG TABLET. PO SCH (08:51)
[2016-09-01] MEDS: AMLODIPINE BESYLATE 10 MG TABLET PO SCH (08:52)
[2016-09-01] MEDS: ESCITALOPRAM 10 MG TABLET. PO SCH (08:52)
[2016-09-01] MEDS: LISINOPRIL 20 MG TABLET PO SCH (08:52)
[2016-09-01] MEDS: INSULIN ASPART 300 UNITS/3 ML INSULN.PEN SQ SCH ×4 (08:56→12:19)
[2016-09-01 11:21] VITALS: BP 137/64
[2016-09-01 14:21] VITALS: BP 131/68
--- NOTE | 2016-09-01 15:07 | PDOC3 ---
Discharge Summary [facility] Date of Admission: Aug 31, 2016 Discharge Date: Sep 01, 2016 Admitting Diagnosis 1. Chest pain, likely 2/2 muscular pain with tenderness 2. DM 2 uncontrolled, unknown hgba1c, BS > 300 at ER 3. HTN 4. OCcasional etoh drinker 5. Strong hx premature CAD in family 6. morbid obesity Problems: Final Diagnosis Problems Medical Problems: (1) Chest pain Status: Acute (2) Hypertensive emergency Status: Acute CONSULTS card Brief Hospital Course Ms. Patel is a 26 old obesity F, DM2 UNCONTROLLED, HTN, + family CAD history , comes for chest pain, + tenderness. CE neg dc home and fu with card for MPI as outpt dc time 35min HEENT: PERRLA, EOMI Lungs: Clear to auscultation, Normal air movement Heart: S1S2, RRR, no thrills, no rubs, no gallops, no murmurs Cardiovascular: S1, S2 Breasts: Normal Abdomen: Normal bowel sounds, Soft, No tenderness, No hepatosplenomegaly, No masses Rectal Exam: not examined PELVIC: Nml ext genitalia Extremities: No clubbing, No cyanosis, No edema, Normal pulses, No tenderness/ swelling Skin: No rashes, No breakdown, No significant lesion Neuro: Normal gait, Normal speech, Strength at 5/5 X4 ext, Normal tone, Sensation intact, Cranial nerves 3-12 NL, Reflexes 2+ Psych/Mental Status: Mental status NL, Mood NL Problems: Disposition home CONDITION AT DISCHARGE: Improved Diet ada Scheduled Amlodipine Besylate (Amlodipine Besylate) 20 MG PO DAILY (Reported) Escitalopram Oxalate (Lexapro) 30 MG PO DAILY (Reported) Insulin Aspart (Novolog) 26 UNIT SQ TIDAC (Reported) Insulin Glargine,Hum.rec.anlog (Lantus) 56 UNIT SQ HS (Reported) Lisinopril (Lisinopril) 1 TAB PO BID (Reported) Metformin Hcl (Metformin Hcl) 1 TAB PO BID (Reported) Pantoprazole Sodium (Protonix) 40 MG PO DAILY (Reported) Trazodone Hcl (Trazodone Hcl) 50 MG PO HS (Reported) Follow Up pcp and card next week ELLE MURRAY MD Sep 01, 2016 15:07
== END 2016-09-01 16:20 | disposition home or self-care (01) | DRG 313 ==
LOC: ER 01:13 → ED HOLD 04:08 → 2 SOUTH 10:17
PROVIDERS: ADMIT Internal Medicine; ATTEND Internal Medicine
DX: R07.89 Other chest pain (principal); Z68.41 Body mass index [BMI] 40.0-44.9, adult; E11.65 Type 2 diabetes mellitus with hyperglycemia; I10 Essential (primary) hypertension; I25.10 Atherosclerotic heart disease of native coronary artery without angina pectoris; E66.01 Morbid (severe) obesity due to excess calories; K21.9 Gastro-esophageal reflux disease without esophagitis; Z79.4 Long term (current) use of insulin; Z82.49 Family history of ischemic heart disease and other diseases of the circulatory system; Z83.3 Family history of diabetes mellitus; Z86.73 Personal history of transient ischemic attack (TIA), and cerebral infarction without residual deficits
CPT/HCPCS: 36415; 71010; 80048; 80061; 81001; 81025; 82947; 83036; 83690; 83880; 84484; 85027; 85379; 93005; 96374; G0481; J1815; J3010; 99285-25

== ENCOUNTER 2016-12-20 01:34 | Emergency (ER) | payer SELFPAY ==
[~2016-12-20] VITALS: Ht 172.7 cm; Wt 124.7 kg
[~2016-12-20 01:34] MED LIST changes: +AMLO10TA2 PO; +ESCI10TA10 PO; +INSU100C4 SQ; +INSU100V8 SQ; +METF-620 PO; +PANT40TA3 PO; +TRAZ50TA15 PO
[2016-12-20 02:01] LABS: BASO % 0 % (0-3); EOS % 0 % (0-3); HEMATOCRIT 39.5 % (36.0-47.0); HEMOGLOBIN 13.1 g/dL (12.0-15.5); LYMPH % 37 % (24-48); MEAN CORPUSCULAR HEMOGLOBIN 27 pg (25-35); MEAN CORPUSCULAR HGB CONC 33 g/dL (31-37); MEAN CORPUSCULAR VOLUME 80 fL (79-100); MONO % 5 % (0-9); NEUT % 58 % (31-73); PLATELET COUNT 200 x10^3/uL (140-400); RED BLOOD COUNT 4.95 x10^6/uL (3.50-5.40); RED CELL DISTRIBUTION WIDTH 12.6 % (11.5-14.5); WHITE BLOOD COUNT 8.3 x10^3/uL (4.0-11.0)
[2016-12-20 02:11] LABS: CREATININE 0.9 mg/dL (0.6-1.0); GFR 90.2
[2016-12-20] MEDS ORDERED: LABETALOL 20 MG/4 ML DISP.SYRIN. IVP ONE (02:30)
[2016-12-20] MEDS ORDERED: ASPIRIN CHEWABLE 81 MG TABLET. PO ONE (02:30)
--- NOTE | 2016-12-20 02:45 | PHYS DOC ---
Past Medical History Past Medical History: CAD, Diabetes-Type I, GERD, Hypertension, Stroke Past Surgical History: No Surgical History Alcohol Use: None Drug Use: None Adult General Chief Complaint Chief Complaint: CHEST PAIN HPI HPI 26-year-old female presenting the emergency department with sharp pleuritic chest pain this started approximately 1 PM yesterday. It is intermittent worse with palpation of the chest associated with a nonproductive cough. She also reports being mildly short of breath. He has a history of chronic hypertension and keeps running out of her medications. She denies the chest pain being sudden in onset. She denies unilateral leg swelling hemoptysis personal or family history of blood in clotting disorder. She is not on estrogen therapy. Review of systems is negative for fevers chills diaphoresis abdominal pain vomiting. All other review of systems is negative unless otherwise noted in history of present illness. Pertinent physical exam findings: The patient's blood pressure is elevated. Lungs are clear to auscultation bilaterally. Palpable pulse in all extremities. No murmur present. ED course: 18-year-old female presenting to the emergency department today with chest pain and hypertension. The patient was given 20 mg of labetalol in the ER for her blood pressure. EKG shows mild repolarization in lead V3 otherwise unremarkable. Chest x-ray unremarkable. One work shows negative troponin. Patient's pain is been present for greater than 6 hours. Perc neg. no clinical evidence of end organ damage. No crackles on auscultation of lungs. Patient denies oliguria. The patient was then discharged home in stable condition to follow up with their primary care physician over the next 2-3 days. They were to return if their symptoms worsened or if they were concerned for any reason. [id number] discharge instructions and return precautions were given. Patient' s questions were answered to their satisfaction. Patient is comfortable plan. Review of Systems Review of Systems SEE ABOVE. Current Medications Current Medications Current Medications Medications (Trade) Dose Ordered Sig/Seven Start Time Stop Time Status Last Admin Dose Admin Aspirin (Children'S Aspirin) 324 mg 1X ONCE 12/20/16 02:30 12/20/16 02:31 DC 12/20/16 02:11 324 MG Labetalol HCl (Normodyne) 20 mg 1X ONCE 12/20/16 02:30 12/20/16 02:31 DC 12/20/16 02:11 20 MG Allergies Allergies Allergies Coded Allergies Type Severity Reaction Last Updated Verified No Known Drug Allergies 11/27/14 No Physical Exam Physical Exam Constitutional: Well developed, well nourished, no acute distress, non-toxic appearance. HENT: Normocephalic, atraumatic, bilateral external ears normal, oropharynx moist, no oral exudates, nose normal. [] Eyes: PERRLA, EOMI, conjunctiva normal, no discharge. Neck: Normal range of motion, no tenderness, supple, no stridor. [] Cardiovascular:Heart rate regular rhythm, no murmur [] Lungs & Thorax: Bilateral breath sounds clear to auscultation Abdomen: Bowel sounds normal, soft, no tenderness, no masses, no pulsatile masses. [] Skin: Warm, dry, no erythema, no rash. Back: No tenderness, no CVA tenderness. [] Extremities: No tenderness, no cyanosis, no clubbing, ROM intact, no edema. [] Neurologic: Alert and oriented X 3, normal motor function, normal sensory function, no focal deficits noted. Psychologic: Affect normal, judgement normal, mood normal. [] Current Patient Data Vital Signs Vital Signs Date Time Temp Pulse Resp B/P (MAP) Pulse Ox O2 Delivery O2 Flow Rate FiO2 12/20/16 02:11 89 219/107 12/20/16 02:00 98.6 16 99 Room Air 98.6 Lab Values Laboratory Tests Test 12/20/16 01:53 White Blood Count 8.3 x10^3/uL (4.0-11.0) Red Blood Count 4.95 x10^6/uL (3.50-5.40) Hemoglobin 13.1 g/dL (12.0-15.5) Hematocrit 39.5 % (36.0-47.0) Mean Corpuscular Volume 80 fL (79-100) Mean Corpuscular Hemoglobin 27 pg (25-35) Mean Corpuscular Hemoglobin Concent 33 g/dL (31-37) Red Cell Distribution Width 12.6 % (11.5-14.5) Platelet Count 200 x10^3/uL (140-400) Neutrophils (%) (Auto) 58 % (31-73) Lymphocytes (%) (Auto) 37 % (24-48) Monocytes (%) (Auto) 5 % (0-9) Eosinophils (%) (Auto) 0 % (0-3) Basophils (%) (Auto) 0 % (0-3) Neutrophils # (Auto) 4.8 x10^3uL (1.8-7.7) Lymphocytes # (Auto) 3.0 x10^3/uL (1.0-4.8) Monocytes # (Auto) 0.4 x10^3/uL (0.0-1.1) Eosinophils # (Auto) 0.0 x10^3/uL (0.0-0.7) Basophils # (Auto) 0.0 x10^3/uL (0.0-0.2) Sodium Level 140 mmol/L (136-145) Potassium Level 4.0 mmol/L (3.5-5.1) Chloride Level 103 mmol/L (98-107) Carbon Dioxide Level 30 mmol/L (21-32) Anion Gap 7 (6-14) Blood Urea Nitrogen 15 mg/dL (7-20) Creatinine 0.9 mg/dL (0.6-1.0) Estimated GFR (Cockcroft-Gault) 90.2 Glucose Level 398 mg/dL (70-99) H Calcium Level 9.0 mg/dL (8.5-10.1) Troponin I Quantitative < 0.017 ng/mL (0.000-0.055) Lipase 143 U/L (73-393) Laboratory Tests 12/20/16 01:53 Laboratory Tests 12/20/16 01:53 EKG EKG EKG shows sinus rhythm with a regular rate. ST segments show mild repolarization in lead V3 without any other ST segment changes. Noncontiguous and less than 1 mm. Intervals within normal limits. Sherman is leftward. [] Radiology/Procedures Radiology/Procedures Chest x-ray reviewed by myself shows no obvious infiltrate or pneumothorax present. No obvious acute cardiopulmonary process present.[] Course & Med Decision Making Course & Med Decision Making Pertinent Labs and Imaging studies reviewed. (See chart for details) [] Dragon Disclaimer Dragon Disclaimer This electronic medical record was generated, in whole or in part, using a voice recognition dictation system. Departure Departure Impression: Primary Impression: Chest pain Disposition: HOME, SELF-CARE Condition: STABLE Referrals: NO PCP (PCP) LAWANDA POMPA MD Patient Instructions: Chest Pain (Nonspecific), Hypertension Additional Instructions: Thank you for allowing us to participate in your care today. Followup with your primary care physician in 3 days if your symptoms do not improve. If you do not have a primary care provider you can ask for a list of our primary care providers. Return to the emergency department you have any new or concerning findings. This should be evaluated by the primary care physician and any necessary consulting services for continued management within a few days after discharge. Return to emergency room if you have any new or concerning symptoms including but not limited to fever, chills, nausea, vomiting, intractable pain, any new rashes, chest pain, shortness of air, uncontrolled bleeding, difficulty breathing, and/or vision loss. EMETERIO PERSON MD Dec 20, 2016 02:45
[2016-12-20 02:52] VITALS: BP 193/102
--- NOTE | 2016-12-20 06:48 | EKG ---
[facility] [address] [place] [address] Test Date: 2016-12-20 Test Time: 01:44:39 Pat Name: BALTA STEARNS Department: Room: Gender: F Landing Scaler: CHRISTIANOStefania : 1990 Requested By: EMETERIO PERSON Order Number: [id number] Reading MD: Enma Cardenas Measurements Intervals [place] Rate: 94 P: 45 RI: 198 QRS: 9 QRSD: 80 T: 47 QT: 344 QTc: 430 Interpretive Statements SINUS RHYTHM LEFT ATRIAL ABNORMALITY QRS(T) CONTOUR ABNORMALITY CONSISTENT WITH ANTEROSEPTAL MYOCARDIAL DAMAGE Electronically Signed On 12-21-2016 19:14:58 CDT by Enma Cardenas
--- NOTE | 2016-12-20 07:43 | RAD ---
Indication chest pain. A single view of the chest was obtained. No prior imaging is available. Heart size is at the upper limits of normal. The mediastinum appears normal. The lungs are clear. There is no pleural fluid or pneumothorax. Bony structures appear unremarkable. IMPRESSION: No acute or focal process is seen in the chest. Cardiac silhouette at the upper limits of normal
== END 2016-12-20 02:58 | disposition home or self-care (01) ==
LOC: ER 01:34
DX: R07.81 Pleurodynia (principal); R05 Cough; R06.02 Shortness of breath; I10 Essential (primary) hypertension; I25.10 Atherosclerotic heart disease of native coronary artery without angina pectoris; E10.9 Type 1 diabetes mellitus without complications; K21.9 Gastro-esophageal reflux disease without esophagitis; Z86.73 Personal history of transient ischemic attack (TIA), and cerebral infarction without residual deficits
CPT/HCPCS: 36415; 71010; 80048; 83690; 84484; 85027; 93005; 96374; 99285; J3490